=== PATIENT | female | born 1980 | race Caucasian/White ===

== ENCOUNTER 2022-11-30 13:02 | Emergency (ER) | payer MEDICAID, SELFPAY ==
--- NOTE | ~2022-11-30 | CT_ITS ---
EXAMINATION: CT abdomen pelvis w con DATE: 11/30/2022 14:12 INDICATION: Right-sided abdominal pain TECHNIQUE: Computed tomography (CT) of the abdomen and pelvis was performed with 100 cc Omnipaque 350 intravenous contrast. The dose-length product was 329.09 mGy-cm. Automated exposure control and iter ative reconstruction technique were employed. COMPARISON: None. FINDINGS: Lung bases are unremarkable. Heart size normal. No significant pleural or pericardial effus ion. The liver, spleen, pancreas, adrenal glands and kidneys are unremarkable. Hyperdense structure d ependently in the gallbladder which may represent a gallstone or gallbladder polyp. No gallbladder wa ll thickening. Nonobstructive bowel pattern. Moderate colonic fecal loading. No significant vascular abnormality. No lymphadenopathy. Small amount of free fluid in the pelvis. No free air. There is mild disc narrowing at L4-5. No acute osseous abnormality. No focal lytic or blastic lesions. IMPRESSION: 1. Hyperdense structure of the gallbladder which may represent a stone or gallbladder polyp. 2: No acute abdominal abnormality. Reviewed, dictated and finalized at location A. IMPRESSION: 1. Hyperdense structure of the gallbladder which may represent a stone or gallb ladder polyp. 2: No acute abdominal abnormality.
[2022-11-30 13:05] VITALS: BP 152/84; PULSE 80; RESP 20; TEMP 36.4; O2SAT 100
[2022-11-30 13:28] LABS: Basophils Absolute Auto 0.1 K/mm3 (0.0-0.1); Eosinophils Percent Auto 0.6 % (0-4.4); Hematocrit 41.2 % (37.0-47.0); Hemoglobin 14.1 g/dL (12.0-15.0); Immature Granulocyte Absolute 0.01 K/mm3 (0.00-0.031); Immature Granulocyte Percent A 0.2 % (0-0.5); Lymphocytes Absolute Auto 2.19 K/mm3 (0.9-3.2); Lymphocytes Percent Auto 35.2 % (18.3-44.2); Mean Corpuscular HGB Conc 34.2 g/dl (32-36); Mean Corpuscular Volume 87.7 fl (80-100); Mean Platelet Volume 11.2 fl (7.4-10.4); Monocytes Absolute Auto 0.5 K/mm3 (0.1-0.6); Monocytes Percent Auto 7.4 % (2.6-8.5); Neutrophils Absolute Auto 3.5 K/mm3 (1.3-6.7); Neutrophils Percent Auto 55.6 % (45.5-73.1); Platelet Count Result 200 k/mm3 (150-375); Red Cell Distribution Width 12.8 % (11.5-14.5); White Blood Count 6.2 K/mm3 (4.5-10.0)
--- NOTE | 2022-11-30 13:31 | ED.FEMALEGU ---
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 No aggravating or relieving factors. Associated with nausea and dizziness. She denies any fever, chills, vomiting, diarrhea, constipation creatinine or symptoms. Last minutes well. 2 weeks ago. History of section x3, bilateral tubal ligation, does not take medicine at home. Related Data Allergies Allergy/AdvReac Type Severity Reaction Status Date / Time metoclopramide AdvReac Mild Makes her Unverified 09/04/17 17:55 heart race Review of Systems Review of Systems: All systems reviewed & are unremarkable except as noted in HPI and below Exam Narrative: General appearance: Well-developed, well-nourished Skin: Normal color Head: Normocephalic, nontraumatic Eyes: Clear conjunctiva ENT: Oropharynx normal, ears normal, nose normal Neck: Supple, nontender Chest and respiratory: Airway patent, no respiratory distress, no accessory muscle use Heart: Regular rate/rhythm Abdomen: Slight right flank tenderness, no bruises just. No swelling the pt was discharged to home.the pt,s condition upon discharge was fair,education was provided to the pt in reference to the final impression,discharge study results,treatment,prognosis and need for follow up . Vascular: Normal peripheral pulses, normal capillary refill. Musculoskeletal: Normal range of motion, nontender back Neurologic: Alert and oriented ?3, R PROGRAMMER is normal as tested, no gross motor deficit Course Vital Signs Vital signs: Vital Signs Temperature 36.4 C L 11/30/22 13:05 Pulse Rate 80 11/30/22 13:05 Respiratory Rate 20 11/30/22 13:05 Blood Pressure 152/84 H 11/30/22 13:05 Pulse Oximetry 100 11/30/22 13:05 Oxygen Delivery Room Air 11/30/22 13:05 Temperature 36.4 C L 11/30/22 13:05 Pulse Rate 66 11/30/22 13:52 Respiratory Rate 20 11/30/22 13:52 Blood Pressure 117/81 11/30/22 13:52 Pulse Oximetry 100 11/30/22 13:52 Oxygen Delivery Room Air 11/30/22 13:05 MDM - Female Genitourinary MDM Narrative Medical decision making narrative: 41 years old white female came by private car from home complaining of intermittent chronic lower back pain, this 1 was a little bit different mainly on the right flank area, later started radiating to the front causing some stomach upset. Physical examination showed slight tenderness at the right flank area, no guarding or rebound, negative Vergara sign, good bowel sounds. Differential diagnosis musculoskeletal back pain, diverticulitis, gastritis, constipation, urinary tract infection, . Patient pancreatitis. Blood work-up today showed normal CBC, normal lipase, normal CMP, normal urine. CT scan of the abdomen and pelvis with IV contrast showed Differential Diagnosis Differential diagnosis: Likely urinary tract infection and other (Musculoskeletal pain, diverticulitis, pancreatitis, gastritis,) Lab Data 11/30/22 13:21 11/30/22 13:21 Labs: Lab Results 11/30/22 Range/Units 13:21 WBC 6.2 (4.5-10.0) K/mm3 RBC 4.70 (4.2-5.4) M/mm3 Hgb 14.1 (12.0-15.0) g/dL Hct 41.2 (37.0-47.0) % MCV 87.7 (80-100) fl MCH 30.0 (26-34) pg MCHC 34.2 (32-36) g/dl RDW 12.8 (11.5-14.5) % Plt Count 200 (150-375) k/mm3 MPV 11.2 H (7.4-10.4) fl Immature Gran
[2022-11-30] MEDS: ONDANSETRON INJ 4 MG/2 ML VIAL IV PUSH (13:47)
[2022-11-30] MEDS: SODIUM CHLORIDE 0.9% IV 1,000 ML 999 ML IV CONT (13:47)
[2022-11-30] MEDS: MORPHINE SULFATE (*CRX) 4 MG/ML INJ IV PUSH (13:47)
[2022-11-30 13:52] VITALS: BP 117/81; PULSE 66; RESP 20; O2SAT 100
[2022-11-30 13:53] LABS: Alanine Aminotransferase 20 U/L (6-35); Alkaline Phosphatase 46 U/L (38-126); Anion Gap 7 mmol/L (8-16); Aspartate Amino Transferase 24 U/L (14-36); Bilirubin,Total 0.7 mg/dL (0.2-1.3); Blood Urea Nitrogen 12 mg/dL (7-17); Calcium 9.3 mg/dL (8.4-10.2); Carbon Dioxide 27 mmol/L (22-30); Chloride 104 mmol/L (98-107); Estimated CRCL calculation 70 ml/min; Estimated Glomerular Filt Rate > 60; Glucose 93 mg/dL (65-110); Lipase 106 U/L (23-300); Potassium 4.5 mmol/L (3.4-5.0); Sodium 138 mmol/L (137-145)
[2022-11-30 13:59] LABS: Appearance Urine Clear (Clear); Bilirubin Urine Negative (Negative); Blood Urine Negative (Negative); Color Urine Yellow (Yellow); Glucose Urine UA Negative (Negative); Ketones Urine Negative (Negative); Leukocyte Esterase Ur Negative LEU/UL (Negative); Nitrate Urine Negative (Negative); Protein Urine Negative (Negative); Specific Grav Ur 1.008 (1.001-1.035); Urobilinogen Urine 0.2 mg/dL (<2.0); pH Urine 6.5 (5.0-9.0)
[2022-11-30 14:06] LABS: Add Urine Microscopic? NO
[2022-11-30 15:22] VITALS: BP 109/76; PULSE 60; RESP 20; O2SAT 100
== END 2022-11-30 15:24 | disposition home or self-care (01) ==
PROVIDERS: Emergency Medicine; Emergency Provider Emergency Medicine; PCP Family Medicine
DX: M54.9 Dorsalgia, unspecified (principal); R93.2 Abnormal findings on diagnostic imaging of liver and biliary tract
CPT/HCPCS: 36415; 74177; 80053; 81003; 81025; 83690; 85025; 96361; 96374; 96375; 99284; J2270; J2405; J7030; Q9967